=== PATIENT | female | born 1965 | race African-American/Black ===

== ENCOUNTER 2020-08-21 20:07 | Emergency (ER) | payer OTHER ==
[~2020-08-21] VITALS: Ht 162.6 cm; Wt 106.1 kg
[2020-08-21] MEDS ORDERED: NAPROSYN500 MG PO (22:12)
[2020-08-21] MEDS ORDERED: TYLENOL325 M1 PO (22:12)
[2020-08-21 22:38] VITALS: BP 199/97
== END 2020-08-21 22:39 | disposition home or self-care (01) ==
LOC: ER 20:07
DX: S86.912A Strain of unspecified muscle(s) and tendon(s) at lower leg level, left leg, initial encounter (principal); I10 Essential (primary) hypertension; Z90.710 Acquired absence of both cervix and uterus; W01.0XXA Fall on same level from slipping, tripping and stumbling without subsequent striking against object, initial encounter; Y93.89 Activity, other specified; Y92.89 Other specified places as the place of occurrence of the external cause; Y99.8 Other external cause status